=== PATIENT | male | born 1965 ===

== ENCOUNTER → 2021-12-03 | Outpatient (CLI) | payer OTHER ==
--- NOTE | 2021-12-04 16:30 | RAD ---
US THYROID History: Reason: THYROID NODULE, GRAVES DISEASE / Spl. Instructions: / History: Comparison: None. Technique: Multiple grayscale and color Doppler images of the thyroid gland were obtained. Findings: Right thyroid lobe: 7.5 x 4.1 x 3.5 cm. Heterogeneous echotexture. Decreased Doppler flow. Left thyroid lobe: 7.8 x 3.0 x 3.4 cm. Heterogeneous echotexture. Decreased Doppler flow. Isthmus: 0.9 cm. -Mixed cystic and solid right mid thyroid nodule measures 1.7 x 1.8 x 1.4 cm. TI-RADS 3. ACR Thyroid Imaging, Reporting And Data System (TI-RADS): White Paper Of The ACR TI-RADS Committee. J ournal of the [place] [employer], volume 14, issue 5, pages 587-595 (January 2017). IMPRESSION: 1. Enlarged heterogeneous thyroid compatible with known thyroiditis. 2. TI-RADS 3 right thyroid nodule. Recommend one-year ultrasound follow-up. Electronically signed by: Lul Ignacio DO (12/04/2021 4:28 PM) [facility]
== END ==
LOC: US 15:51
PROVIDERS: ATTEND Nurse Practitioner Family
DX: E04.1 Nontoxic single thyroid nodule (principal); Z83.49 Family history of other endocrine, nutritional and metabolic diseases
CPT/HCPCS: 76536